=== PATIENT | male | born 1970 | race Caucasian/White ===

== ENCOUNTER 2023-02-06 14:20 | Outpatient (OUT) | payer OTHER, SELFPAY ==
--- NOTE | 2023-02-06 14:32 | ECG_ITS ---
[facility] Test Date: 2023-02-06 Pat Name: JOSE NUNES Department: Room: - Gender: Male [employer]: : 1970 Requested By: JAVAD YORK Order Number: [id number] Reading MD: NASIM FULLER Measurements Intervals [place] Rate: 68 P: 31 TX: 149 QRS: -34 QRSD: 104 T: 0 QT: 402 QTc: 429 Interpretive Statements SINUS RHYTHM MARKED LEFT AXIS DEVIATION [QRS AXIS < -30] POSSIBLE LEFT VENTRICULAR HYPERTROPHY [VOLTAGE CRITERIA PLUS LAE OR QRS WIDENING] No previous ECG available for comparison Electronically Signed On 02-09-2023 16:39:24 EST by NASIM FULLER
--- NOTE | 2023-02-06 15:02 | P.GSHP_ITS ---
History of Present Illness History of Present Illness Chief complaint: etd Narrative: Patient presents for preadmission testing. Please see HPI from Dr. Stratton dated 01/22/2023. Review of Systems ROS Narrative Please see ROS from Dr. Stratton dated 01/22/2023. PFSH PFSH Medical History (Updated 02/06/23 @ 14:50 by Radha Calzada NP) Sleep apnea ?G47.30 - Sleep apnea, unspecified (ICD-10) Asthma ?J45.909 - Unspecified asthma, uncomplicated (ICD-10) Hypertension ?I10 - Essential (primary) hypertension (ICD-10) Postoperative nausea and vomiting ?R11.2 - Nausea with vomiting, unspecified (ICD-10) ?Z98.890 - Other specified postprocedural states (ICD-10) Dysfunction of both eustachian tubes ?H69.93 - Unspecified Eustachian tube disorder, bilateral (ICD-10) Surgical History (Updated 02/06/23 @ 14:50 by Radha Calzada NP) History of arthroscopy of knee ?Z98.890 - Other specified postprocedural states (ICD-10) History of nasal septoplasty ?Z98.890 - Other specified postprocedural states (ICD-10) History of tonsillectomy ?Z90.89 - Acquired absence of other organs (ICD-10) History of myringotomy ?Z98.890 - Other specified postprocedural states (ICD-10) Social History (Updated 02/06/23 @ 14:48 by Radha Calzada NP) Within the past year, how often did you have a drink containing alcohol: never Score interpretation: A score less than 4 is consistent with normal alcohol consumption. Smoking status: Never smoker Non-prescribed substance use: denies use Previous occupational history: field engineer Highest level of school completed/degree received: Master's degree Meds Home Medications and Allergies Home Medications Medication Instructions Recorded Confirmed Type fluticasone propionate 50 1 spray intranasal DAILY PRN 02/06/23 02/06/23 History mcg/actuation nasal allergy symptoms spray,suspension lisinopril 20 mg tablet 20 mg PO DAILY 02/06/23 02/06/23 History montelukast 10 mg tablet 10 mg PO DAILY 02/06/23 02/06/23 History Allergies Allergy/AdvReac Type Severity Reaction Status Date / Time No Known Drug Allergies Allergy Verified 02/06/23 14:46 Exam Narrative Exam Narrative: Constitutional: Awake, alert, comfortable, well-appearing, nontoxic, interactive, vital signs as charted Head: Normocephalic, atraumatic Neck: Supple, normal appearance, normal range of motion, no meningeal signs, no lymphadenopathy Respiratory: No respiratory distress, breath sounds clear Cardiovascular: Regular rate and rhythm, strong and regular heart tones Musculoskeletal: Normal gait, no swelling or edema Skin: No rashes or induration, no lesions, only visible skin inspected Neuro: No neurological deficits, normal sensation Psychiatric: Oriented ?3, normal affect Assessment and Plan Assessment and Plan (1) Dysfunction of both eustachian tubes: Plan Bilateral myringotomy and insertion of ventilation tubes/T-tubes scheduled with Dr. Stratton 02/18/2023.
== END 2023-02-06 14:21 | disposition home or self-care (01) ==
LOC: PST 14:21
PROVIDERS: PCP Internal Medicine; Visit Provider Otolaryngology
DX: Z01.812 Encounter for preprocedural laboratory examination (principal); Z01.810 Encounter for preprocedural cardiovascular examination; H69.93 Unspecified Eustachian tube disorder, bilateral
CPT/HCPCS: 93005; G0463

== ENCOUNTER 2023-02-07 09:46 | Outpatient (OUT) | payer OTHER, SELFPAY | END 2023-02-07 09:47 | disposition home or self-care (01) | LOC: PST 02-10 09:46 | PROVIDERS: PCP Internal Medicine; Visit Provider Otolaryngology | DX: Z01.812 Encounter for preprocedural laboratory examination (principal) | CPT/HCPCS: 36415; 85025 ==

== ENCOUNTER 2023-02-18 08:21 | Day surgery (SDC) | payer OTHER, SELFPAY ==
[2023-02-06 14:58] VITALS: BP 156/98; PULSE 73; RESP 14; TEMP 36.3; O2SAT 97; BMI 33.7
[2023-02-07 16:22] LABS: Basophils Absolute Auto 0.1 10^3/uL (0.0-0.1); Basophils Percent Auto 0.5 % (0.2-2.0); Eosinophils Absolute Auto 0.2 10^3/uL (0.0-0.7); Eosinophils Percent Auto 1.7 % (0.9-7.0); Hematocrit 43.3 % (42.0-54.0); Hemoglobin 14.2 g/dL (14.0-18.0); Immature Granulocytes Abs Auto 0.02 10^3/uL (0.00-0.03); Immature Granulocytes Pct Auto 0.2 % (0.0-0.5); Lymphocytes Absolute Auto 3.2 10^3/uL (1.2-3.8); Lymphocytes Percent Auto 30.7 % (20.5-60.0); Mean Corpuscular HGB Conc 32.8 g/dL (29.9-35.2); Mean Corpuscular Hemoglobin 29.8 pg (25.9-34.0); Mean Platelet Volume 8.2 fL (9.5-13.5); Monocytes Absolute Auto 0.8 10^3/uL (0.3-0.8); Monocytes Percent Auto 7.4 % (1.7-12.0); Neutrophils Absolute Auto 6.2 10^3/uL (1.4-6.5); Neutrophils Percent Auto 59.5 % (43.0-75.0); Platelet Count 311 10^3/uL (150-450); Red Blood Count 4.76 10^6/uL (4.70-6.10); Red Cell Distribution Width 12.7 % (11.0-15.0); White Blood Count 10.4 10^3/uL (4.0-11.0)
[2023-02-18] VITALS (9 sets, daily range): BP systolic 122–146; BP diastolic 81–94; PULSE 69–87; RESP 12–18; TEMP 36.1–36.6; O2SAT 94–98; BMI 34.1
--- NOTE | 2023-02-18 | OP_ITS ---
OPERATION DATE: 02/18/2023 PRIMARY CARE PHYSICIAN: Charlie Denise D.O. SURGEON: Ria Stratton M.D. PREOPERATIVE DIAGNOSIS: Eustachian tube dysfunction. POSTOPERATIVE DIAGNOSIS: Eustachian tube dysfunction. PROCEDURE: Bilateral myringotomy and tubes with microdissection, placement of T-tubes. ANESTHESIA: General LMA COMPLICATIONS: None. FINDINGS: Bilateral dry middle ears. INDICATIONS: This 52-year-old man has a long history of chronic eustachian tube dysfunction, unresponsive to medical management. PROCEDURE: Patient identified in the holding area and taken back to the OR where he was placed in the supine position. After induction of general anesthesia, the left ear was approached with the otomicroscope. An anterior radial myringotomy was performed and a modified Bello?s T-tube was folded, inserted in the middle ear, and opened in the middle ear using microdissection. Attention was turned to the right ear and the same procedure performed. Patient was then awakened and taken to the recovery room in good condition. JEANMARIE
[2023-02-18] MEDS: LACTATED RINGER'S SOLUTION 1,000 ML 50 ML IV (08:47)
[2023-02-18] MEDS: ACETAMINOPHEN 325 MG TABLET 650 MG PO (11:12)
--- NOTE | 2023-02-18 11:14 | PC.NURSE ---
patient has bilateral pain with a 4 rating in the ears. tylenol given as ordered
== END 2023-02-18 11:39 | disposition home or self-care (01) ==
PROVIDERS: PCP Internal Medicine; Visit Provider Otolaryngology
PROC: (CPT 126; principal; 2023-02-18 09:30)
DX: H69.93 Unspecified Eustachian tube disorder, bilateral (principal); G47.30 Sleep apnea, unspecified; J45.909 Unspecified asthma, uncomplicated; I10 Essential (primary) hypertension; J32.9 Chronic sinusitis, unspecified
CPT/HCPCS: 00126; 69436; J2704